=== PATIENT | male | born 1940 | race Caucasian/White ===

== ENCOUNTER 2018-09-08 15:17 | Emergency (ER) | payer OTHER ==
[2018-09-08 15:57] LABS: ARTERIAL BLD GAS O2 SATURATION 97.3 % (90-98.9); ARTERIAL BLOOD GAS BASE EXCESS -1.7 meq/l (-2-2); ARTERIAL BLOOD GAS PCO2 39.2 mmHg (35-45); ARTERIAL BLOOD GAS PO2 94.6 mmHg (70-100); ARTERIAL BLOOD GAS pH 7.38 (7.35-7.45); CARBOXYHEMOGLOBIN 1.1 gm% (0.5-2.0)
[2018-09-08 15:59] LABS: ALLENS TEST POSITIVE
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
[2018-09-08 16:34] VITALS: BMI 23.1
[2018-09-08 16:39] VITALS: PULSE 65
[2018-09-08 16:39] LABS: BASO % 0.8 % (0-2.0); EOS % 2.4 % (0-4.5); HEMATOCRIT 33.3 % (35.4-49); HEMOGLOBIN 11.4 GM/dL (11.7-16.9); LYMPH % 30.2 % (8-40); MCH 31.4 pg (25.7-33.7); MCHC 34.1 g/dl (32.0-35.9); MEAN CELL VOLUME 91.9 fl (80-96); MEAN PLT VOLUME 9.6 fl (7.5-11.1); MONO % 10.8 % (3.8-10.2); NEUT % 55.8 % (42.8-82.8); PLATELET COUNT 195 K/MM3 (134-434); RBC 3.62 M/mm3 (4.00-5.60); RDW 13.8 % (11.9-15.9); WHITE BLOOD COUNT 5.1 K/mm3 (4.0-10.0)
[2018-09-08 17:01] LABS: ALBUMIN 3.3 g/dl (3.4-5.0); ALK PHOS 209 U/L (45-117); ANION GAP 5 MMOL/L (8-16); BILIRUBIN,TOTAL 0.2 mg/dL (0.2-1); BLOOD UREA NITROGEN 30 mg/dL (7-18); CALCIUM 8.2 mg/dL (8.5-10.1); CHLORIDE 102 mmol/L (98-107); CO2 25 mmol/L (21-32); CREATININE 1.7 mg/dL (0.55-1.3); GLUCOSE,RANDOM 89 mg/dL (74-106); POTASSIUM 5.3 mmol/L (3.5-5.1); SGOT/AST 23 U/L (15-37); SGPT/ALT 20 U/L (13-61); SODIUM 132 mmol/L (136-145); TOT PROT 8.1 g/dl (6.4-8.2)
[2018-09-08 17:33] VITALS: BP 158/92; TEMP 98.1
--- NOTE | 2018-09-09 12:58 | EKG ---
Test Reason : Blood Pressure : / mmHG Vent. Rate : 065 BPM Atrial Rate : 065 BPM P-R Int : 172 ms QRS Dur : 124 ms QT Int : 418 ms P-R-T Axes : 026 039 043 degrees QTc Int : 434 ms NORMAL SINUS RHYTHM RIGHT BUNDLE BRANCH BLOCK ABNORMAL ECG WHEN COMPARED WITH ECG OF 19-FEB-2016 03:19, PREMATURE ATRIAL COMPLEXES ARE NO LONGER PRESENT Confirmed by Fercho Hendrix ([id number]) on 09/09/2018 12:57:58 PM Referred By: Confirmed By:Fercho Hendrix
== END 2018-09-08 17:51 | disposition short-term general hospital (02) ==
LOC: JER 15:17
DX: J70.5 Respiratory conditions due to smoke inhalation (principal); J02.9 Acute pharyngitis, unspecified; R06.02 Shortness of breath; X08.8XXA Exposure to other specified smoke, fire and flames, initial encounter; Y93.89 Activity, other specified; Y92.009 Unspecified place in unspecified non-institutional (private) residence as the place of occurrence of the external cause; E11.9 Type 2 diabetes mellitus without complications; I10 Essential (primary) hypertension; E78.00 Pure hypercholesterolemia, unspecified
CPT/HCPCS: 36415; 36600; 71045-TC-FY; 80053; 82375; 82803; 83050; 84484; 85025; 93005; 93010; 99285-25